=== PATIENT | female | born 1975 | race African-American/Black ===

== ENCOUNTER 2017-08-02 19:53 | Inpatient (IN) | payer MEDICAID ==
[~2017-08-02] VITALS: Ht 157.5 cm; Wt 44.5 kg
[2017-08-02 20:16] VITALS: BP 106/48
[2017-08-02] MEDS ORDERED: NKM (20:16)
[2017-08-02] MEDS ORDERED: Sodium Chloride 500ML 500 ML IV ONE (20:29)
[2017-08-02] MEDS ORDERED: Morphine Sulfate 4mg/ml Inj IVP ONE ×2 (20:30→23:00)
[2017-08-02 21:20] LABS: APPEARANCE,URINE CLEAR; BILIRUBIN, URINE NEGATIVE (NEGATIVE); COLOR,URINE PALE YELLOW; GLUCOSE, URINE (UA) NEGATIVE (NEGATIVE); KETONES,URINE NEGATIVE (NEGATIVE); LEUKOCYTE ESTERASE ,URINE NEGATIVE (NEGATIVE); NITRITE,URINE NEGATIVE (NEGATIVE); PH,URINE 6.5 (4.5-8.0); PROTEIN,URINE NEGATIVE (NEGATIVE); UROBILINOGEN,URINE NORMAL MG/DL (0.0-1.0)
[2017-08-02 22:16] VITALS: BP 104/43
[2017-08-02 22:37] LABS: ANION GAP 10 mmol/L (5-15); BLOOD UREA NITROGEN 4 mg/dL (7-18); CALCIUM 8.6 MG/DL (8.5-10.1); CARBON DIOXIDE 21 MMOL/L (21-32); CHLORIDE 101 MMOL/L (98-107); CREATININE 0.6 MG/DL (0.55-1.30); POTASSIUM 4.1 MMOL/L (3.5-5.1); SODIUM 132 MMOL/L (136-145)
[2017-08-02 22:41] LABS: ALANINE AMINOTRANSFERASE 15 U/L (12-78); ALBUMIN/GLOBULIN RATIO 0.7 (1.0-2.7); ALKALINE PHOSPHATASE 55 U/L (46-116); ASPARTATE AMINO TRANSFERASE 22 U/L (15-37); BILIRUBIN,TOTAL 0.5 MG/DL (0.2-1.0)
[2017-08-02 22:45] LABS: INR 1.1 (0.9-1.1)
[2017-08-02] MEDS ORDERED: Ketorolac 30mg Inj IV ONE (23:00)
[2017-08-02 23:11] LABS: HEMATOCRIT 9.7 % (37.0-47.0); MEAN CORPUSCULAR VOLUME 59 FL (80-99); RED BLOOD COUNT 1.65 M/UL (4.20-5.40); RED CELL DISTRIBUTION WIDTH 25.9 % (11.6-14.8); WHITE BLOOD COUNT 20.5 K/UL (4.8-10.8)
--- NOTE | 2017-08-02 23:17 | Emergency Room Report ---
History of Present Illness General Chief Complaint: Abdominal Pain Source: Patient (ANTONY LINCOLN M.D.) Present Illness HPI 41-year-old female presents to ED for evaluation. Complaining of cramping lower abdominal pain for last several weeks. States she has history of fibroids which is known for many years now. States she's been bleeding for nearly one month now. States that she normally has heavier periods. She states this is more than usual. Pain is cramping, 8/10, nonradiating. Denies any vaginal discharge. Denies any chest pain or shortness of breath. Denies nausea or vomiting. No other aggravating or relieving factors. Denies any other associated symptoms (ANTONY LINCOLN M.D.) Allergies: Coded Allergies: No Known Allergies (Unverified , 08/02/17) Patient History Past Medical History: other - fibroids Past Surgical History: none Pertinent Family History: none Social History: Denies: smoking, alcohol use, drug use Last Menstrual Period: UNK Now: No Immunizations: UTD Reviewed Nursing Documentation: PMH: Agreed, PSxH: Agreed (ANTONY LINCOLN M.D.) Review of Systems All Other Systems: negative except mentioned in HPI (ANTONY LINCOLN M.D.) Physical Exam Vital Signs Date Time Temp Pulse Resp B/P (MAP) Pulse Ox O2 Delivery O2 Flow Rate FiO2 08/02/17 20:09 99.3 109 20 106/48 100 Room Air Sp02 EP Interpretation: reviewed, normal General Appearance: alert, GCS 15, non-toxic, mild distress Head: normocephalic Eyes: bilateral eye normal inspection, bilateral eye PERRL ENT: normal ENT inspection Neck: normal inspection Respiratory: chest non-tender, lungs clear, normal breath sounds, speaking full sentences Cardiovascular #1: regular rate, rhythm, no edema Gastrointestinal: normal bowel sounds, soft, non-distended, no guarding, no rebound, tenderness - suprapubic Rectal: deferred Genitourinary: no CVA tenderness Musculoskeletal: normal inspection Neurologic: alert, oriented x3, responsive, motor strength/tone normal, sensory intact, speech normal Psychiatric: judgement/insight normal, memory normal, mood/affect normal, no suicidal/homicidal ideation Skin: normal inspection Lymphatic: normal inspection (ANTONY LINOCLN M.D.) Medical Decision Making Diagnostic Impression: Primary Impression: Anemia Qualified Codes: D64.9 - Anemia, unspecified Additional Impressions: Thrombocytosis Leukocytosis Qualified Codes: D72.829 - Elevated white blood cell count, unspecified Fibroids Qualified Codes: D25.9 - Leiomyoma of uterus, unspecified ER Course Hospital Course 41-year-old female presents to ED complaining of lower abdominal pain with heavy vaginal bleeding x 1 month Differential diagnoses include: gastrits, gastroenterits, ectopic , ovarian torsion/cyst, UTI Clinical course Patient placed on stretcher in ED. After initial history and physical I ordered labs, IV fluids and pain meds and pelvic ultrasound. Labs-noted leukocytosis, electrolytes okay, Hb 2.6, coags ok, beta hCG negative , UA negative Pelvic ultrasound- large fibroids While patient has been having heavy bleeding for nearly one month she could certainly be displaying severe anemia requested the CBC be repeated as the platelets are also markedly elevated However patient will likely be admitted and require transfusion Signed out to Dr. Hope for repeat CBC, transfusion and likely endorsement to admitting physician Diagnosis - fibroids, anemia, thrombocytosis, leukocytosis admitted to [facility] in serious condition Labs Test 08/02/17 20:30 08/02/17 21:55 08/02/17 22:53 08/02/17 22:58 Urine Color Pale yellow Urine Appearance Clear Urine pH 6.5 (4.5-8.0) Urine Specific [place] 1.005 (1.005-1.035) Urine Protein Negative (NEGATIVE) Urine Glucose (UA) Negative (NEGATIVE) Urine Ketones Negative (NEGATIVE) Urine Occult Blood Negative (NEGATIVE) Urine Nitrite Negative (NEGATIVE) Urine Bilirubin Negative (NEGATIVE) Urine Urobilinogen Normal MG/DL (0.0-1.0) Urine Leukocyte Esterase Negative (NEGATIVE) Urine HCG, Qualitative Negative Prothrombin Time 11.7 SEC (9.30-11.50) Prothromb Time International Ratio 1.1 (0.9-1.1) Activated Partial Thromboplast Time 29 SEC (23-33) Sodium Level 132 MMOL/L (136-145) Potassium Level 4.1 MMOL/L (3.5-5.1) Chloride Level 101 MMOL/L (98-107) Carbon Dioxide Level 21 MMOL/L (21-32) Anion Gap 10 mmol/L (5-15) Blood Urea Nitrogen 4 mg/dL (7-18) Creatinine 0.6 MG/DL (0.55-1.30) Estimat Glomerular Filtration Rate > 60 mL/min (>60) Glucose Level 99 MG/DL (74-106) Calcium Level 8.6 MG/DL (8.5-10.1) Magnesium Level 1.9 MG/DL (1.8-2.4) Total Bilirubin 0.5 MG/DL (0.2-1.0) Aspartate Amino Transf (AST/SGOT) 22 U/L (15-37) Alanine Aminotransferase (ALT/SGPT) 15 U/L (12-78) Alkaline Phosphatase 55 U/L (46-116) Total Protein 7.2 G/DL (6.4-8.2) Albumin 3.0 G/DL (3.4-5.0) Globulin 4.2 g/dL Albumin/Globulin Ratio 0.7 (1.0-2.7) Lipase 65 U/L (73-393) White Blood Count 20.0 K/UL (4.8-10.8) 20.5 K/UL (4.8-10.8) Red Blood Count 1.57 M/UL (4.20-5.40) 1.65 M/UL (4.20-5.40) Hemoglobin 2.4 G/DL (12.0-16.0) 2.6 G/DL (12.0-16.0) Hematocrit 9.2 % (37.0-47.0) 9.7 % (37.0-47.0) Mean Corpuscular Volume 59 FL (80-99) 59 FL (80-99) Mean Corpuscular Hemoglobin 15.5 PG (27.0-31.0) 15.6 PG (27.0-31.0) Mean Corpuscular Hemoglobin Concent 26.4 G/DL (32.0-36.0) 26.7 G/DL (32.0-36.0) Red Cell Distribution Width 25.9 % (11.6-14.8) 25.9 % (11.6-14.8) Platelet Count 1188 K/UL (150-450) 1111 K/UL (150-450) Mean Platelet Volume 5.3 FL (6.5-10.1) 6.0 FL (6.5-10.1) Neutrophils (%) (Auto) % (45.0-75.0) % (45.0-75.0) Lymphocytes (%) (Auto) % (20.0-45.0) % (20.0-45.0) Monocytes (%) (Auto) % (1.0-10.0) % (1.0-10.0) Eosinophils (%) (Auto) % (0.0-3.0) % (0.0-3.0) Basophils (%) (Auto) % (0.0-2.0) % (0.0-2.0) Differential Total Cells Counted 100 Neutrophils % (Manual) 79 % (45-75) Lymphocytes % (Manual) 8 % (20-45) Monocytes % (Manual) 7 % (1-10) Eosinophils % (Manual) 1 % (0-3) Basophils % (Manual) 4 % (0-2) Band Neutrophils 1 % (0-8) Platelet Estimate Increased Platelet Morphology Normal Poikilocytosis 3+ Anisocytosis 3+ Tear Drop Cells 2+ Ovalocytes 2+ (ANTONY LINCOLN M.D.) ER Course Patient signed out to me by Dr Lincoln at 10pm to recheck CBC Repeat CBC again shows Hb 2.6, severe anemia likely from ?bleeding fibroids Platelets 1111, Leukocytosis 20k. Leuks elevated but no fever or signs of sepsis No cough or SOB to suggest PNA UA negative for UTI Abd soft, NT, non distended Patient transfused 2U PRBC in ED Tachycardia improved to ~90 with transfusion No other acute issues in ED Endorsed for panel admit to Dr Overton at 240am med/surg (REINALDO HOPE M.D.) Rhythm Strip Diag. Results EP Interpretation: yes Rate: 90 Rhythm: NSR, no PVC's, no ectopy (REINALDO HOPE M.D.) CT/MRI/US Diagnostic Results CT/MRI/US Diagnostic Results : Imaging Test Ordered: Pelvic US Impression large uterine fibroids (ANTONY LINCOLN M.D.) Last Vital Signs Date Time Temp Pulse Resp B/P (MAP) Pulse Ox O2 Delivery O2 Flow Rate FiO2 08/02/17 20:16 99.3 108 20 106/48 100 Room Air Status: improved (ANTONY LINCOLN M.D.) Status: improved (REINALDO HOPE M.D.) Disposition: ADMITTED INPATIENT Condition: Serious Signed Out To: Dr Hope (ANTONY LINCOLN M.D.) Referrals: GIGI ORTEGA,REFERRING (PCP) ANTONY LINCOLN M.D. Aug 02, 2017 23:17 REINALDO HOPE M.D. Aug 03, 2017 02:43
[2017-08-02 23:23] LABS: HEMOGLOBIN 2.6 G/DL (12.0-16.0); PLATELET COUNT 1111 K/UL (150-450)
[2017-08-02 23:48] LABS: HEMATOCRIT 9.2 % (37.0-47.0); MEAN CORPUSCULAR VOLUME 59 FL (80-99); RED BLOOD COUNT 1.57 M/UL (4.20-5.40); RED CELL DISTRIBUTION WIDTH 25.9 % (11.6-14.8)
[2017-08-03] VITALS (8 sets, daily range): BP systolic 99–117; BP diastolic 49–74
[2017-08-03 00:06] LABS: HEMOGLOBIN 2.4 G/DL (12.0-16.0)
[2017-08-03 00:07] LABS: PLATELET COUNT 1188 K/UL (150-450)
[2017-08-03] MEDS ORDERED: Miralax 17gm pkt ORAL PRN (05:00)
[2017-08-03] MEDS ORDERED: Zolpidem 5mg tab ORAL PRN (05:00)
[2017-08-03] MEDS ORDERED: LORazepam Inj 2mg/ml 1ml IV PRN (05:00)
[2017-08-03] MEDS ORDERED: Mylanta II UD 30ml ORAL PRN (05:00)
--- NOTE | 2017-08-03 10:34 | History and Physical ---
History of Present Illness General Reason for Hospitalization: Abdominal Pain Present Illness HPI 41-year-old female presents to ED for evaluation of cramping lower abdominal pain for last several weeks. she's been bleeding for nearly one month now. She states this is more than usual. Pain is cramping, 8/10, nonradiating. Denies any vaginal discharge. Denies any chest pain or shortness of breath. Denies nausea or vomiting. No other aggravating or relieving factors. Denies any other associated symptom. Her Hemoglobin was 2. She was tachycardic. She is admitted to [facility] for symptomatic anemia. Allergies: Coded Allergies: No Known Allergies (Unverified , 08/02/17) Medication History Scheduled No Known Medications* (NKM - No Known Medications*), 0 ., (Reported) Patient History Healthcare decision maker Resuscitation status Full Code Advanced Directive on File No Past Medical/Surgical History Past Medical/Surgical History: (1) Fibroids Review of Systems All Other Systems: negative except mentioned in HPI Physical Exam General Appearance: cachetic Lines, tubes and drains: peripheral HEENT: normocephalic, atraumatic Neck: non-tender, normal alignment Respiratory/Chest: chest wall non-tender, lungs clear Breasts: no masses Cardiovascular/Chest: normal peripheral pulses Abdomen: normal bowel sounds, soft Genitourinary/Rectal: normal genital exam, normal prostate exam Extremities: normal range of motion Skin Exam: normal pigmentation 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 Last 24 Hour Vital Signs Date Time Temp Pulse Resp B/P (MAP) Pulse Ox O2 Delivery O2 Flow Rate FiO2 08/03/17 08:51 98.6 08/03/17 08:45 98.6 92 18 107/63 100 Room Air 08/03/17 08:36 99.1 90 17 119/59 100 Room Air 08/03/17 06:16 99.1 90 17 108/65 100 Room Air 08/03/17 04:50 98.8 92 15 08/03/17 04:16 98.9 95 12 99/56 100 Room Air 08/03/17 02:16 98.9 102 13 104/49 100 Room Air 08/03/17 01:50 99.7 102 12 08/03/17 00:16 99.2 105 19 109/50 100 Room Air 08/02/17 22:39 99.4 08/02/17 22:39 99.4 08/02/17 22:39 99.4 08/02/17 22:16 99.1 108 18 104/43 100 Room Air 08/02/17 20:16 99.3 108 20 106/48 100 Room Air 08/02/17 20:09 99.3 109 20 106/48 100 Room Air Intake and Output 08/02/17 08/03/17 19:00 07:00 Intake Total 250 ml Balance 250 ml Intake Blood Product 250 ml # Voids 1 Laboratory Tests Test 08/02/17 20:30 08/02/17 21:55 08/02/17 22:53 08/02/17 22:58 Urine Color Pale yellow Urine Appearance Clear Urine pH 6.5 (4.5-8.0) Urine Specific [place] 1.005 (1.005-1.035) Urine Protein Negative (NEGATIVE) Urine Glucose (UA) Negative (NEGATIVE) Urine Ketones Negative (NEGATIVE) Urine Occult Blood Negative (NEGATIVE) Urine Nitrite Negative (NEGATIVE) Urine Bilirubin Negative (NEGATIVE) Urine Urobilinogen Normal MG/DL (0.0-1.0) Urine Leukocyte Esterase Negative (NEGATIVE) Urine HCG, Qualitative Negative Prothrombin Time 11.7 SEC (9.30-11.50) H Prothromb Time International Ratio 1.1 (0.9-1.1) Activated Partial Thromboplast Time 29 SEC (23-33) Sodium Level 132 MMOL/L (136-145) L Potassium Level 4.1 MMOL/L (3.5-5.1) Chloride Level 101 MMOL/L (98-107) Carbon Dioxide Level 21 MMOL/L (21-32) Anion Gap 10 mmol/L (5-15) Blood Urea Nitrogen 4 mg/dL (7-18) L Creatinine 0.6 MG/DL (0.55-1.30) Estimat Glomerular Filtration Rate > 60 mL/min (>60) Glucose Level 99 MG/DL (74-106) Calcium Level 8.6 MG/DL (8.5-10.1) Magnesium Level 1.9 MG/DL (1.8-2.4) Total Bilirubin 0.5 MG/DL (0.2-1.0) Aspartate Amino Transf (AST/SGOT) 22 U/L (15-37) Alanine Aminotransferase (ALT/SGPT) 15 U/L (12-78) Alkaline Phosphatase 55 U/L (46-116) Total Protein 7.2 G/DL (6.4-8.2) Albumin 3.0 G/DL (3.4-5.0) L Globulin 4.2 g/dL Albumin/Globulin Ratio 0.7 (1.0-2.7) L Lipase 65 U/L (73-393) L White Blood Count 20.0 K/UL (4.8-10.8) H 20.5 K/UL (4.8-10.8) H Red Blood Count 1.57 M/UL (4.20-5.40) L 1.65 M/UL (4.20-5.40) L Hemoglobin 2.4 G/DL (12.0-16.0) *L 2.6 G/DL (12.0-16.0) *L Hematocrit 9.2 % (37.0-47.0) L 9.7 % (37.0-47.0) L Mean Corpuscular Volume 59 FL (80-99) L 59 FL (80-99) L Mean Corpuscular Hemoglobin 15.5 PG (27.0-31.0) L 15.6 PG (27.0-31.0) L Mean Corpuscular Hemoglobin Concent 26.4 G/DL (32.0-36.0) L 26.7 G/DL (32.0-36.0) L Red Cell Distribution Width 25.9 % (11.6-14.8) H 25.9 % (11.6-14.8) H Platelet Count 1188 K/UL (150-450) *H 1111 K/UL (150-450) *H Mean Platelet Volume 5.3 FL (6.5-10.1) L 6.0 FL (6.5-10.1) L Neutrophils (%) (Auto) % (45.0-75.0) % (45.0-75.0) Lymphocytes (%) (Auto) % (20.0-45.0) % (20.0-45.0) Monocytes (%) (Auto) % (1.0-10.0) % (1.0-10.0) Eosinophils (%) (Auto) % (0.0-3.0) % (0.0-3.0) Basophils (%) (Auto) % (0.0-2.0) % (0.0-2.0) Differential Total Cells Counted 100 Neutrophils % (Manual) 79 % (45-75) H Lymphocytes % (Manual) 8 % (20-45) L Monocytes % (Manual) 7 % (1-10) Eosinophils % (Manual) 1 % (0-3) Basophils % (Manual) 4 % (0-2) H Band Neutrophils 1 % (0-8) Platelet Estimate Increased H Platelet Morphology Normal Poikilocytosis 3+ Anisocytosis 3+ Tear Drop Cells 2+ Ovalocytes 2+ Height (Feet): 5 Height (Inches): 2.00 Weight (Pounds): 98 Medications Current Medications Medications (Trade) Dose Ordered Sig/Inocencio Route PRN Reason Start Time Stop Time Status Last Admin Dose Admin Acetaminophen (Tylenol) 650 mg Q4H PRN ORAL fever 08/03/17 05:00 09/02/17 04:59 08/03/17 07:39 Al Hydroxide/Mg Hydroxide (Mylanta II) 30 ml Q6H PRN ORAL dyspepsia 08/03/17 05:00 09/02/17 04:59 Dextrose (Dextrose 50%) STAT PRN IV Hypoglycemia 08/03/17 05:00 09/02/17 04:59 Lorazepam (Ativan 2mg/ml 1ml) 0.5 mg Q4H PRN IV For Anxiety 08/03/17 05:00 08/10/17 04:59 Morphine Sulfate (Morphine Sulfate) 1 mg Q4H PRN IVP For Pain 08/03/17 05:00 08/10/17 04:59 Ondansetron HCl (Zofran) 4 mg Q6H PRN IVP Nausea & Vomiting 08/03/17 05:00 09/02/17 04:59 Polyethylene Glycol (Miralax) 17 gm HSPRN PRN ORAL Constipation 08/03/17 05:00 09/02/17 04:59 Zolpidem Tartrate (Ambien) 5 mg HSPRN PRN ORAL Insomnia 08/03/17 05:00 08/10/17 04:59 Assessment/Plan Problem List: (1) Symptomatic anemia ICD Codes: D64.9 - Anemia, unspecified SNOMED: 831208936 (2) Tachycardia ICD Codes: R00.0 - Tachycardia, unspecified SNOMED: 8967801 (3) Thrombocytosis ICD Codes: D47.3 - Essential (hemorrhagic) thrombocythemia SNOMED: 2549919, 146239312 (4) Leukocytosis ICD Codes: D72.829 - Elevated white blood cell count, unspecified SNOMED: 574738947, [id number] Qualifiers: Qualified Codes: D72.829 - Elevated white blood cell count, unspecified Assessment/Plan prbc until hem is above 7 IV fluids Premarin IV check electrolytes. LUIS VALENCIA Aug 03, 2017 10:34
[2017-08-03] MEDS: Morphine Sulfate 2mg/ml Inj IVP PRN (10:41)
[2017-08-03] MEDS ORDERED: Premarin Inj IV ONE (11:00)
--- NOTE | 2017-08-03 11:58 | Diagnostic Imaging Report ---
Indication: Cramping, heavy vaginal bleeding x7 weeks, negative urine test Technique: Transabdominal and transvaginal images Comparison: none Findings: The uterus is enlarged, measuring 13.2 cm length by 7.4 cm AP. It demonstrates multiple fibroids, several large. Largest measures 6.9 cm long axis dimension. Right ovary measures 2.7 cm in length. Left ovary measures 2.8 cm in length. There is a small amount of free cul-de-sac fluid Impression: Enlarged uterus demonstrate multiple large fibroids Negative for adnexal mass Small amount of free fluid, presumably physiologic
[2017-08-03] MEDS ORDERED: Iron Sucrose 100 MG in NS 55 ML IV SCH (12:00)
[2017-08-03 19:59] LABS: HEMATOCRIT 23.3 % (37.0-47.0); HEMOGLOBIN 7.5 G/DL (12.0-16.0); MEAN CORPUSCULAR VOLUME 75 FL (80-99); PLATELET COUNT 952 K/UL (150-450); RED BLOOD COUNT 3.11 M/UL (4.20-5.40); RED CELL DISTRIBUTION WIDTH 26.6 % (11.6-14.8); WHITE BLOOD COUNT 21.2 K/UL (4.8-10.8)
[2017-08-03 20:03] LABS: INR 1.1 (0.9-1.1)
[2017-08-03 20:05] LABS: LACTATE DEHYDROGENASE 826 U/L (81-234)
[2017-08-03 20:30] LABS: % IRON SATURATION 39 % (15-50); IRON 138 ug/dL (50-175); TOTAL IRON BINDING CAPACITY 358 ug/dL (250-450)
--- NOTE | 2017-08-03 23:00 | Consultation ---
DATE OF CONSULTATION: 08/03/2017 HEMATOLOGY/ONCOLOGY CONSULTATION CONSULTING PHYSICIAN: Luisito Chi M.D. REQUESTING PHYSICIAN: Juanjose Overton M.D. REASON FOR CONSULTATION: Management of iron-deficiency anemia. IDENTIFYING DATA: Dear Dr. Overton, The patient is a pleasant 41-year-old female with past medical history which is significant for anemia of iron deficiency, at this time, presents to the hospital with cramping lower abdominal pain for the past several weeks. The pain has been on and off for the past month. Currently, more than usual. Pain is 8/10. Denies any vaginal discharge. No chest pain. No shortness of breath. Hemoglobin was 2.8, admitted to [facility] for symptomatic anemia and platelet count of greater than 1 million. Hematology service was consulted for further evaluation and treatment. PAST MEDICAL HISTORY: As noted above. PAST SURGICAL HISTORY: None noticed. MEDICATIONS: Potassium, estrogens, Tylenol, morphine, dextrose, and Zolpidem. ALLERGIES: No known drug allergies. SOCIAL HISTORY: Lives at home with family. REVIEW OF SYSTEMS: A 12-point review of systems completed. Otherwise, limited. PHYSICAL EXAMINATION: GENERAL: No acute distress. VITAL SIGNS: Reviewed. PULMONARY: Decreased breath sounds. CARDIOVASCULAR: Regular rate. No S3 or S4. ABDOMEN: Soft, nontender, and nondistended. EXTREMITIES: No cyanosis, swelling, or edema. LABORATORY DATA: WBC 20,000, hemoglobin 2.6, hematocrit 9.7, and platelet count 1 million. Coagulation, PT of 1.7. BUN . ASSESSMENT AND RECOMMENDATIONS: 1. Anemia due to underlying severe iron deficiency. The patient has been severely iron deficient. She has been admitted to the hospital, however, has been several years. At this time, administered conjugated estrogens as well as iron, will need five days of iron. In addition, must see Gynecology for evaluation of fibroid uterus. 2. Anemia due to menorrhagia. 3. Coagulopathy. Closely monitor likely secondary to decreased oral intake. 4. Leukocytosis due to underlying reactive process from anemia. 5. Thrombocytosis, severe. Consider aspirin. However, this is likely just a reactive process. Anemia and thrombocytosis should improve as well. 6. Fibroid uterus. See Gynecology on an outpatient basis. Thank you for the consult. Luisito Chi M.D. DR: TIFFANIE JOB#: [id number] CC:
[2017-08-04] VITALS: BP 120/81
[2017-08-04 04:00] VITALS: BP 120/75
[2017-08-04 05:15] LABS: INR 1.1 (0.9-1.1)
[2017-08-04] MEDS: Morphine Sulfate 2mg/ml Inj IVP PRN (05:16)
[2017-08-04 05:17] LABS: HEMOGLOBIN 7.6 G/DL (12.0-16.0); MEAN CORPUSCULAR VOLUME 75 FL (80-99); PLATELET COUNT 937 K/UL (150-450); RED CELL DISTRIBUTION WIDTH 27.1 % (11.6-14.8); WHITE BLOOD COUNT 20.3 K/UL (4.8-10.8)
[2017-08-04 05:48] LABS: ALANINE AMINOTRANSFERASE 16 U/L (12-78); ALBUMIN 2.4 G/DL (3.4-5.0); ALBUMIN/GLOBULIN RATIO 0.6 (1.0-2.7); ALKALINE PHOSPHATASE 57 U/L (46-116); ANION GAP 10 mmol/L (5-15); ASPARTATE AMINO TRANSFERASE 26 U/L (15-37); BLOOD UREA NITROGEN 4 mg/dL (7-18); CALCIUM 8.3 MG/DL (8.5-10.1); CARBON DIOXIDE 22 MMOL/L (21-32); CHLORIDE 105 MMOL/L (98-107); CREATININE 0.5 MG/DL (0.55-1.30); POTASSIUM 4.2 MMOL/L (3.5-5.1); SODIUM 137 MMOL/L (136-145)
[2017-08-04 06:05] LABS: PHOSPHORUS 3.4 MG/DL (2.5-4.9)
[2017-08-04 08:00] VITALS: BP 140/77
[2017-08-04] MEDS ORDERED: DiphenhydrAMINE 50mg/ml Inj IVP PRN (09:45)
--- NOTE | 2017-08-04 09:46 | Pulmonology Progress Note ---
Assessment/Plan Problems: (1) Symptomatic anemia (2) Tachycardia (3) Thrombocytosis (4) Leukocytosis Assessment/Plan got 4 units of prbc got venofer IV bleeding stopped dc home today Subjective ROS Limited/Unobtainable: No Constitutional: Reports: no symptoms HEENT: Repors: no symptoms Respiratory: Reports: no symptoms Allergies: Coded Allergies: No Known Allergies (Unverified , 08/02/17) Objective Last 24 Hour Vital Signs Date Time Temp Pulse Resp B/P (MAP) Pulse Ox O2 Delivery O2 Flow Rate FiO2 08/04/17 05:46 98.5 08/04/17 04:00 98.1 85 20 120/75 100 Room Air 08/04/17 04:00 77 08/04/17 00:00 84 08/04/17 00:00 98.5 92 20 120/81 100 Room Air 08/03/17 21:12 98.9 08/03/17 21:12 98.9 08/03/17 20:00 97 08/03/17 20:00 102.0 94 20 117/74 100 Room Air 08/03/17 16:25 91 08/03/17 16:03 98.4 92 18 111/65 100 Room Air 08/03/17 12:00 98.2 89 18 108/59 100 Room Air 08/03/17 11:43 90 Intake and Output 08/03/17 08/04/17 19:00 07:00 Intake Total 1220 ml 750 ml Output Total 4 ml 3 ml Balance 1216 ml 747 ml Intake Oral 620 ml IV Total 750 ml Blood Product 600 ml Output Urine Total 4 ml 3 ml General Appearance: WD/WN HEENT: normocephalic, atraumatic Respiratory/Chest: chest wall non-tender, lungs clear Breasts: no masses Cardiovascular: normal peripheral pulses, normal rate Abdomen: normal bowel sounds, soft, non tender, no organomegaly Genitourinary: normal external genitalia Extremities: no clubbing Skin: no rash Laboratory Tests 08/03/17 19:10: White Blood Count 21.2H, Red Blood Count 3.11L, Hemoglobin 7.5#L, Hematocrit 23.3#L, Mean Corpuscular Volume 75#L, Mean Corpuscular Hemoglobin 24.2L, Mean Corpuscular Hemoglobin Concent 32.3, Red Cell Distribution Width 26.6H, Platelet Count 952H, Mean Platelet Volume 6.2L, Neutrophils (%) (Auto) , Lymphocytes (%) (Auto) , Monocytes (%) (Auto) , Eosinophils (%) (Auto) , Basophils (%) (Auto) , Differential Total Cells Counted 100, Neutrophils % ( Manual) 87H, Lymphocytes % (Manual) 8L, Monocytes % (Manual) 2, Eosinophils % ( Manual) 3, Basophils % (Manual) 0, Band Neutrophils 0, Nucleated Red Blood Cells 3, Platelet Estimate IncreasedH, Platelet Morphology Normal, Giant Platelets , Polychromasia 1+, Hypochromasia 2+, Anisocytosis 2+, Erythrocyte Sedimentation Rate 71H, Reticulocyte Count 1.1, Prothrombin Time 11.9H, Prothromb Time International Ratio 1.1, Activated Partial Thromboplast Time 37H , Fibrinogen 638H, Iron Level 138, Total Iron Binding Capacity 358, Percent Iron Saturation 39, Unsaturated Iron Binding 220, Ferritin 17, Lactate Dehydrogenase 826H, Vitamin B12 Level 1343H, Folate 8.4L 08/04/17 03:50: White Blood Count 20.3H, Red Blood Count 3.20L, Hemoglobin 7.6L, Hematocrit 24.0L, Mean Corpuscular Volume 75L, Mean Corpuscular Hemoglobin 23.8L, Mean Corpuscular Hemoglobin Concent 31.7L, Red Cell Distribution Width 27.1H, Platelet Count 937H, Mean Platelet Volume 6.2L, Neutrophils (%) (Auto) , Lymphocytes (%) (Auto) , Monocytes (%) (Auto) , Eosinophils (%) (Auto) , Basophils (%) (Auto) , Differential Total Cells Counted 100, Neutrophils % ( Manual) 85H, Lymphocytes % (Manual) 8L, Monocytes % (Manual) 4, Eosinophils % ( Manual) 1, Basophils % (Manual) 2, Band Neutrophils 0, Nucleated Red Blood Cells 4, Platelet Estimate IncreasedH, Platelet Morphology Normal, Hypochromasia 3+, Anisocytosis 3+, Prothrombin Time 11.7H, Prothromb Time International Ratio 1.1, Activated Partial Thromboplast Time 36H, Poikilocytosis 3+, Microcytosis 3+, Blister Cells 1+, Acanthocytes 1+, Schistocytes 2+, Sodium Level 137, Potassium Level 4.2, Chloride Level 105, Carbon Dioxide Level 22, Anion Gap 10, Blood Urea Nitrogen 4L, Creatinine 0.5L, Estimat Glomerular Filtration Rate > 60, Glucose Level 90, Calcium Level 8.3L, Phosphorus Level 3.4, Magnesium Level 2.1, Total Bilirubin 1.0, Aspartate Amino Transf (AST/SGOT) 26, Alanine Aminotransferase (ALT/SGPT) 16, Alkaline Phosphatase 57, Total Protein 6.3L, Albumin 2.4L, Globulin 3.9, Albumin/ Globulin Ratio 0.6L, Thyroid Stimulating Hormone (TSH) 0.905 Current Medications Medications (Trade) Dose Ordered Sig/Inocencio Route PRN Reason Start Time Stop Time Status Last Admin Dose Admin Acetaminophen (Tylenol) 650 mg Q4H PRN ORAL fever 08/03/17 05:00 09/02/17 04:59 08/03/17 20:13 Al Hydroxide/Mg Hydroxide (Mylanta II) 30 ml Q6H PRN ORAL dyspepsia 08/03/17 05:00 09/02/17 04:59 Dextrose (Dextrose 50%) STAT PRN IV Hypoglycemia 08/03/17 05:00 09/02/17 04:59 Diphenhydramine HCl (Benadryl) 25 mg Q6H PRN IVP Itching 08/04/17 09:45 09/03/17 09:44 UNV Lorazepam (Ativan 2mg/ml 1ml) 0.5 mg Q4H PRN IV For Anxiety 08/03/17 05:00 08/10/17 04:59 Morphine Sulfate (Morphine Sulfate) 1 mg Q4H PRN IVP For Pain 08/03/17 05:00 08/10/17 04:59 08/04/17 05:16 Ondansetron HCl (Zofran) 4 mg Q6H PRN IVP Nausea & Vomiting 08/03/17 05:00 09/02/17 04:59 Polyethylene Glycol (Miralax) 17 gm HSPRN PRN ORAL Constipation 08/03/17 05:00 09/02/17 04:59 Potassium Chloride 10 meq/ Dextrose/Sodium Chloride 1,005 ml @ 75 mls/hr [id number] IV 08/03/17 11:30 09/02/17 11:29 08/04/17 08:57 Zolpidem Tartrate (Ambien) 5 mg HSPRN PRN ORAL Insomnia 08/03/17 05:00 08/10/17 04:59 LUIS VALENCIA Aug 04, 2017 09:46
[2017-08-04] MEDS ORDERED: IRON325 M1 PO (09:47)
[2017-08-04 12:00] VITALS: BP 114/68
[2017-08-04] MEDS ORDERED: Tubing Blood Filter IV ONE (14:34)
[2017-08-04] MEDS ORDERED: Tubing IV Secondary IV ONE (14:34)
[2017-08-04] MEDS ORDERED: NS 275ml ONE (14:34)
--- NOTE | 2017-08-04 17:26 | Cardiology Report ---
APPROVED REPORT EKG Measurement Heart [id number] Normal sinus rhythm Nonspecific T wave abnormality Abnormal ECG
--- NOTE | 2017-08-05 00:24 | General Progress Note ---
Assessment/Plan Assessment/Plan 1. Anemia due to underlying severe iron deficiency. --> The patient has been severely iron deficient. --> She has been admitted to the hospital, however, has been several years. --> At this time, administered conjugated estrogens as well as iron, will need five days of iron. --> In addition, must see Gynecology for evaluation of fibroid uterus. 2. Anemia due to menorrhagia. --> Hemoglobin goal >7 --> Give blood transfusion if symptomatic or hgb drops below goal. 3. Coagulopathy. --> Closely monitor likely secondary to decreased oral intake. 4. Leukocytosis due to underlying reactive process from anemia. --> Monitor 5. Thrombocytosis, severe. Consider aspirin. --> However, this is likely just a reactive process. --> Anemia and thrombocytosis should improve as well. 6. Fibroid uterus. See Gynecology on an outpatient basis. Subjective Date patient seen: Aug 04, 2017 Constitutional: Denies: no symptoms, chills, diaphoresis, fever, malaise, weakness, other HEENT: Denies: no symptoms, eye pain, blurred vision, tearing, double vision, ear pain, ear discharge, nose pain, nose congestion, throat pain, throat swelling, mouth pain, mouth swelling, other Cardiovascular: Denies: no symptoms, chest pain, edema, irregular heart rate, lightheadedness, palpitations, syncope, other Respiratory: Denies: no symptoms, cough, orthopnea, shortness of breath, SOB with excertion, SOB at rest, sputum, stridor, wheezing, other Gastrointestinal/Abdominal: Denies: no symptoms, abdomen distended, abdominal pain, black stools, tarry stools, blood in stool, constipated, diarrhea, difficulty swallowing, nausea, poor appetite, poor fluid intake, rectal bleeding , vomiting, other Genitourinary: Denies: no symptoms, burning, discharge, frequency, flank pain, hematuria, incontinence, pain, urgency, other Hematologic/Lymphatic: Reports: anemia Allergies: Coded Allergies: No Known Allergies (Unverified , 08/02/17) Subjective Wbc and platelet count elevated. Hgb low. Afebrile. Objective Last 24 Hour Vital Signs Date Time Temp Pulse Resp B/P (MAP) Pulse Ox O2 Delivery O2 Flow Rate FiO2 08/04/17 12:00 98.8 87 20 114/68 100 Room Air 08/04/17 11:47 79 08/04/17 08:00 91 08/04/17 08:00 97.2 76 18 140/77 95 Room Air 08/04/17 05:46 98.5 08/04/17 04:00 98.1 85 20 120/75 100 Room Air 08/04/17 04:00 77 Intake and Output 08/04/17 08/05/17 19:00 07:00 Intake Total 375 ml Balance 375 ml IV Total 375 ml Laboratory Tests 08/04/17 03:50: White Blood Count 20.3H, Red Blood Count 3.20L, Hemoglobin 7.6L, Hematocrit 24.0L, Mean Corpuscular Volume 75L, Mean Corpuscular Hemoglobin 23.8L, Mean Corpuscular Hemoglobin Concent 31.7L, Red Cell Distribution Width 27.1H, Platelet Count 937H, Mean Platelet Volume 6.2L, Neutrophils (%) (Auto) , Lymphocytes (%) (Auto) , Monocytes (%) (Auto) , Eosinophils (%) (Auto) , Basophils (%) (Auto) , Differential Total Cells Counted 100, Neutrophils % ( Manual) 85H, Lymphocytes % (Manual) 8L, Monocytes % (Manual) 4, Eosinophils % ( Manual) 1, Basophils % (Manual) 2, Band Neutrophils 0, Nucleated Red Blood Cells 4, Platelet Estimate IncreasedH, Platelet Morphology Normal, Hypochromasia 3+, Poikilocytosis 3+, Anisocytosis 3+, Microcytosis 3+, Blister Cells 1+, Acanthocytes 1+, Schistocytes 2+, Prothrombin Time 11.7H, Prothromb Time International Ratio 1.1, Activated Partial Thromboplast Time 36H, Sodium Level 137, Potassium Level 4.2, Chloride Level 105, Carbon Dioxide Level 22, Anion Gap 10, Blood Urea Nitrogen 4L, Creatinine 0.5L, Estimat Glomerular Filtration Rate > 60, Glucose Level 90, Calcium Level 8.3L, Phosphorus Level 3.4 , Magnesium Level 2.1, Total Bilirubin 1.0, Aspartate Amino Transf (AST/SGOT) 26 , Alanine Aminotransferase (ALT/SGPT) 16, Alkaline Phosphatase 57, Total Protein 6.3L, Albumin 2.4L, Globulin 3.9, Albumin/Globulin Ratio 0.6L, Thyroid Stimulating Hormone (TSH) 0.905 Height (Feet): 5 Height (Inches): 2.00 Weight (Pounds): 98 Luisito Chi Aug 05, 2017 00:24
--- NOTE | 2017-08-05 14:17 | Discharge Summary ---
Discharge Summary Hospital Course Date of Admission Aug 03, 2017 at 02:30 Date of Discharge Aug 04, 2017 at 14:35 Admitting Diagnosis ANEMIA HPI Ernestina Talbot is a 41 year old female who was admitted on Aug 03, 2017 at 02:30 for Anemia Hospital Course [id number] Discharge Discharge Disposition Patient was discharged to Home (01) Discharge Diagnoses: Karen Fitzpatrick NP Aug 05, 2017 14:17
--- NOTE | 2017-08-06 02:00 | Discharge Summary 2 SIG ---
DATE OF ADMISSION: 08/03/2017 DATE OF DISCHARGE: 08/04/2017 INDUSTRIAL ILLUMINATING ENGINEER: Luisito Chi M.D. BRIEF HOSPITAL COURSE: The patient is a 41-year-old female, who came from home, presented to ED complaining of abdominal pain for the last several weeks. She has been bleeding for nearly one month and states that this is more than her usual. She had hypogastric cramping, 8/10 and nonradiating. Denied any vaginal discharge. Denied any shortness of breath. On evaluation at ED, hemoglobin was at 2.4, hematocrit was 9.2, and platelet count was 1188. She was followed by Hematology service. She was given a total of 4 packed RBC blood transfusion. She has anemia due to underlying severe iron deficiency. Leukocytosis was due to underlying reactive process from anemia. Thrombocytosis was severe. She had abdominal, pelvic, and transvaginal ultrasound that showed an enlarged uterus with multiple large fibroids and negative for adnexal mass. Post transfusion, hemoglobin was stable. Thrombocytosis also going down. The patient was given IV iron and was eventually discharged home to follow up with PMD in a week. FINAL DIAGNOSES: 1. Acute Symptomatic anemia requiring blood transfusion. 2. Severe anemia due to iron deficiency and vaginal bleeding due to fibroids. 3. Thrombocytosis. 4. Tachycardia. DISPOSITION: The patient was discharged home. DISCHARGE MEDICATIONS: Refer to medication list. DISCHARGE INSTRUCTIONS: Follow up with PMD in a week. Juanjose Overton M.D. I have been assigned to dictate discharge summary on this account and I was not involved in the patient's management. Karen Fitzpatrick N.P. DR: CHRISTOPHER JOB#: [id number] CC: ALYCE
--- NOTE | 2017-08-10 13:18 | Diagnostic Imaging Report ---
APPROVED REPORT CPT Code: 46548 Present Symptoms Comments: Pain BILATERAL: Imaging reveals a patent deep venous system bilaterally. There is no evidence of thrombus within the femoral, popliteal or tibial segments. The greater saphenous veins are also within normal limits. Doppler indicates normal spontaneous flow within these segments.
== END 2017-08-04 14:35 | disposition home or self-care (01) | DRG 663 ==
LOC: EMR 20:33 → 2W 08-03 02:30 → EDBEDREQSVC 08-03 05:12 → EDBEDREQ 08-03 05:12 → EDBEDREQSVC 08-03 07:59 → 2W 08-03 10:11
PROC: 30233N1 Transfusion of Nonautologous Red Blood Cells into Peripheral Vein, Percutaneous Approach (ICD-10-PCS; principal; 2017-08-03)
DX: D50.9 Iron deficiency anemia, unspecified (principal); D68.9 Coagulation defect, unspecified; D25.9 Leiomyoma of uterus, unspecified; D47.3 Essential (hemorrhagic) thrombocythemia; R00.0 Tachycardia, unspecified; D72.829 Elevated white blood cell count, unspecified; N92.0 Excessive and frequent menstruation with regular cycle
CPT/HCPCS: 36415; 76856; 80053; 81003; 81025; 82378; 82607; 82728; 82746; 83540; 83550; 83615; 83690; 83735; 84100; 84443; 85007; 85025; 85044; 85060; 85384; 85610; 85651; 85730; 86850; 86900; 86901; 86920; 93005; 93970; 99285